=== PATIENT | female | born 1990 | race Caucasian/White ===

== ENCOUNTER 2019-09-12 21:04 | Emergency (ER) | payer OTHER, SELFPAY ==
[2019-09-12 21:12] VITALS: BP 113/65; PULSE 113; RESP 18; TEMP 37; O2SAT 100
--- NOTE | 2019-09-12 21:21 | ED.NAVMDI ---
HPI - Nausea/Vomiting/Diarrhea General Chief complaint: Nausea/Vomiting/Diarrhea Stated complaint: N/V, 12 WEEKS PREG Time Seen by Provider: 09/12/19 21:18 Source: patient and RN notes reviewed Mode of arrival: ambulatory Limitations: no limitations History of Present Illness HPI Narrative: Pt is a 29 y/o female who is currently 12 weeks and G1, who presents to the ED with c/o nausea and vomiting starting around 8 AM this morning. She notes that she has had intermittent nausea during her current , but states that she hasn't had any vomiting until today. Pt notes that she has had four episodes of emesis throughout the day today. She states that she received a colposcopy by her CLINICAL SERVICES ASSISTANT, Dr. Alvarez, this morning, and notes that she has had associated vaginal discharge ever since. Pt also reports recently having chills, sweats, body aches, and throat congestion. She notes that everyone in her house is currently sick with upper respiratory symptoms. Pt denies any diarrhea, dysuria, urinary frequency, ABD pain, or fever. MD elicited complaint: nausea and vomiting Onset (ago): hour(s) (13) Associated nausea: Yes Associated abdominal pain: No Associated symptoms: diaphoresis, fever/chills (chills) and other (body aches; throat congestion; vaginal discharge) Related Data Allergies Allergy/AdvReac Type Severity Reaction Status Date / Time tramadol Allergy Unknown Hives Verified 09/12/19 21:14 Review of Systems Review of Systems: All systems reviewed & are unremarkable except as noted in HPI and below Constitutional: Constitutional: Reports body ache(s), Reports chills and Denies fever(s) ENT: Reports other (throat congestion) Cardiovascular: Cardiovascular: Reports diaphoresis Gastrointestinal: Gastrointestinal: Denies abdominal pain, Denies diarrhea, Reports nausea and Reports vomiting Genitourinary: Genitourinary: Denies dysuria, Reports vaginal discharge and Denies other (urinary frequency) [facility] Past Medical History Medical History Inguinal hernia UTI (urinary tract infection) Surgical History Surgical History Hx of inguinal hernia repair Family History Family History (Updated 10/25/16 @ 14:33 by DOCTOR UNKNOWN) Grandparent Family history of thyroid disease Family history of cardiovascular disease Family history of lung cancer Family history of malignant neoplasm of breast in first degree relative Father Hypertension Malignant neoplasm of prostate Mother Hypertension Social History Social History Smoking status: Never smoker Alcohol intake: current Gender identity (if verbalized by the patient): Female Exam Narrative: Exam Narrative: GENERAL: Well-appearing, well-nourished, and in no acute distress. HEAD: Normocephalic, atraumatic. ENT: Mucous membranes moist. CHEST: Clear to auscultation. No respiratory distress. HEART: Tachycardic and regular. Normal peripheral pulses. ABDOMEN: Soft, nontender, nondistended. EXTREMITIES: Normal range of motion. No edema. NEURO: Alert and oriented x3. PSYCH: Normal mood and affect. Course Course Emergency Course: Patient informed of results. Tolerating oral intake. Hydrated. Discharge home. Vital Signs Vital signs: Vital Signs Temperature 98.6 F 09/12/19 21:12 Pulse Rate 113 H 09/12/19 21:12 Respiratory Rate 18 09/12/19 21:12 Blood Pressure 113/65 09/12/19 21:12 Pulse Oximetry 100 09/12/19 21:12 Temperature 98.6 F 09/12/19 21:12 Pulse Rate 92 09/12/19 22:57 Respiratory Rate 18 09/12/19 22:57 Blood Pressure 102/57 L 09/12/19 22:57 Pulse Oximetry 100 09/12/19 22:57 MDM - Nausea/Vomiting/Diarrhea Lab Data Result diagrams: 09/12/19 21:47 09/12/19 21:47 Labs: Lab Results 09/12/19 09/12/19 09/12/19 Range/Units 21:47 21
[2019-09-12 21:53] LABS: Basophils Percent Auto 0.2 % (0.2-1.2); Eosinophils Percent Auto 0.4 % (0-4.4); Hematocrit 41.4 % (37.0-47.0); Hemoglobin 13.8 g/dL (12.0-15.0); Immature Granulocyte Absolute 0.01 K/mm3 (0.00-0.031); Immature Granulocyte Percent A 0.2 % (0-0.5); Lymphocytes Absolute Auto 0.29 K/mm3 (0.9-3.2); Lymphocytes Percent Auto 5.5 % (18.3-44.2); Mean Corpuscular HGB Conc 33.3 g/dl (32-36); Mean Corpuscular Hemoglobin 30.7 pg (26-34); Mean Corpuscular Volume 92.2 fl (80-100); Monocytes Absolute Auto 0.2 K/mm3 (0.1-0.6); Monocytes Percent Auto 4.4 % (2.6-8.5); Neutrophils Absolute Auto 4.7 K/mm3 (1.3-6.7); Neutrophils Percent Auto 89.3 % (45.5-73.1); Platelet Count Result 227 k/mm3 (150-375); Red Blood Count 4.49 M/mm3 (4.2-5.4); Red Cell Distribution Width 12.8 % (11.5-14.5); White Blood Count 5.3 K/mm3 (4.5-10.0)
[2019-09-12] MEDS: PROMETHAZINE HCL 25 MG/ML AMPUL 12.5 MG IV PUSH (22:03)
[2019-09-12] MEDS: SODIUM CHLORIDE 0.9% IV 1,000 ML 999 ML IV CONT (22:04)
[2019-09-12 22:09] LABS: Blood Urea Nitrogen 11 mg/dL (7-17); Calcium 8.8 mg/dL (8.4-10.2); Carbon Dioxide 20 mmol/L (22-30); Chloride 100 mmol/L (98-107); Estimated CRCL calculation 161 ml/min; Estimated Glomerular Filt Rate > 60; Glucose 99 mg/dL (65-105); Potassium 3.7 mmol/L (3.4-5.0); Sodium 137 mmol/L (137-145)
[2019-09-12 22:14] VITALS: BP 116/82; PULSE 96; RESP 16; O2SAT 100
[2019-09-12 22:57] VITALS: BP 102/57; PULSE 92; RESP 18; O2SAT 100
[2019-09-12 22:58] LABS: Add Urine Microscopic? YES; Appearance Urine Clear (Clear); Bilirubin Urine Negative (Negative); Blood Urine Negative (Negative); Color Urine Yellow (Yellow); Glucose Urine UA Negative (Negative); Ketones Urine 2+ mg/dL (Negative); Leukocyte Esterase Ur Negative LEU/UL (Negative); Mucus Urine Few /lpf; Nitrate Urine Negative (Negative); Protein Urine Negative (Negative); RBC Urine 0-2 /hpf (0-2); Specific Grav Ur 1.028 (1.001-1.035); Squamous Epithelial Cell Urine Occasional /hpf (Few); Urobilinogen Urine Negative mg/dL (<2.0)
--- NOTE | 2019-09-12 23:10 | PC.NURSE ---
pt given crackers and water for po challenge from verbal order from ayanna piña.
--- NOTE | 2019-09-12 23:12 | PC.NURSE ---
pt states shes no longer nauseated. denies any abd pain. md notified.
--- NOTE | 2019-09-12 23:30 | PC.NURSE ---
pt denies any nausea after eating crackers/drinking water. md notified.
[2019-09-12 23:50] VITALS: BP 101/59; PULSE 91; RESP 18; TEMP 36.6; O2SAT 100
== END 2019-09-12 23:52 | disposition home or self-care (01) ==
PROVIDERS: Emergency Provider Emergency Medicine
DX: O21.9 Vomiting of pregnancy, unspecified (principal); Z87.440 Personal history of urinary (tract) infections; Z3A.12 12 weeks gestation of pregnancy
CPT/HCPCS: 36415; 80048; 81001; 85025; 96361; 96374; 99284; J2550; J7030

== ENCOUNTER 2019-09-30 20:38 | Emergency (ER) | payer OTHER, SELFPAY ==
[2019-09-30 21:10] VITALS: BP 123/67; PULSE 79; RESP 16; TEMP 36.9; O2SAT 100
[2019-09-30 21:20] VITALS: BP 125/80; BP 130/70; BP 135/84; PULSE 72; PULSE 75; PULSE 78
--- NOTE | 2019-09-30 21:26 | ED.FEMALEGU ---
HPI - Female Genitourinary General Chief complaint: Vaginal Bleeding Stated complaint: VB 14WKS PREG Time Seen by Provider: 09/30/19 21:25 Source: patient and RN notes reviewed Mode of arrival: wheelchair Limitations: no limitations History of Present Illness HPI Narrative: Pt is a 29 y/o female who is currently 14 weeks and G1, who presents to the ED with c/o vaginal bleeding starting around 20:30 this evening. She notes that she has been following with SETTER UP, Dr. Alvarez, for her current , and states that she received an US 1-2 weeks ago. Pt notes that she began passing bright red blood from her vagina earlier this evening. She also reports lower ABD pain as of this evening, but denies any fever, chills, or dysuria. Pt notes that she is currently being treated with Macrobid for a UTI. She states that she hasn't had any recent intercourse or traumatic falls. MD elicited complaint: vaginal bleeding Onset (ago): hour(s) (1) Location of symptoms: vaginal Vaginal bleeding: moderate Associated symptoms: abdominal pain (lower ABD pain) Treatment prior to arrival: other (Macrobid) Patient : Yes Related Data : 1 Allergies Allergy/AdvReac Type Severity Reaction Status Date / Time tramadol Allergy Unknown Hives Verified 09/12/19 21:14 Review of Systems Review of Systems: Narrative: CONSTITUTIONAL: Denies fever, chills, or sweats. GASTROINTESTINAL: Denies nausea, vomiting, or diarrhea. Reports lower ABD pain. GENITOURINARY: Denies dysuria or hematuria. Reports vaginal bleeding. All systems reviewed & are unremarkable except as noted in HPI and below PMFSH Family History Family History (Updated 10/25/16 @ 14:33 by DOCTOR UNKNOWN) Grandparent Family history of thyroid disease Family history of cardiovascular disease Family history of lung cancer Family history of malignant neoplasm of breast in first degree relative Father Hypertension Malignant neoplasm of prostate Mother Hypertension Social History Social History Smoking status: Never smoker Alcohol intake: current Gender identity (if verbalized by the patient): Female Exam Narrative: Exam Narrative: GENERAL: Well-appearing, well-nourished, and in no acute distress. HEAD: Normocephalic, atraumatic. EYES: PERRLA and EOMI. ENT: Nares clear, no rhinorrhea or epistaxis. Mucous membranes moist. NECK: Supple. CHEST: Clear to auscultation. No respiratory distress. HEART: Regular rate and rhythm. No murmur heard. Normal peripheral pulses. ABDOMEN: Soft, nondistended, normal active bowel sounds. Suprapubic tenderness. Fundus palpable below the umbilicus. No RLQ tenderness. EARLY CHILDHOOD COORDINATOR/: Labia majora and minora normal without lesions. Vagina with scant blood. No cervical motion tenderness. No adnexal tenderness or fullness bilaterally. Os is closed. No discharge present. EXTREMITIES: Normal range of motion. No edema. SKIN: Warm, dry, no rash. NEURO: No focal deficits. Alert and oriented. Course Course Emergency Course: Patient presented for evaluation of abdominal pain in setting of early second trimester . Pt with scant vaginal bleeding on exam. Os is closed. No sign of mucoid discharge or cervicitis. Patient with movement on bedside ultrasound, heart tones captured at 158. No heavy vaginal bleeding. No UTI. Blood counts are normal. Patient does not require RhoGam. Patient given advised on pelvic rest, advised follow-up with Dr. Alvarez this week. Advised to return should she experience very heavy vaginal bleeding that does not resolve, patient was given parameters for this as well. Patient then discharged home in stable condition. Vital Signs Vital signs: Vital Signs Temperature 36.9 C 09/30/19 21:10 Pulse Rate 79 09/30/19 21:10 Respiratory Rate 16 09/30/19 21:10 Blood Pressure 123/67 09/30/19 21:10 Pulse Oximetry 100 09/30/19 21:10 Temperature 36.9 C
[2019-09-30 21:52] LABS: Basophils Percent Auto 0.4 % (0.2-1.2); Eosinophils Absolute Auto 0.1 K/mm3 (0-0.3); Eosinophils Percent Auto 1.8 % (0-4.4); Hematocrit 38.9 % (37.0-47.0); Hemoglobin 12.8 g/dL (12.0-15.0); Immature Granulocyte Absolute 0.03 K/mm3 (0.00-0.031); Immature Granulocyte Percent A 0.4 % (0-0.5); Lymphocytes Absolute Auto 2.04 K/mm3 (0.9-3.2); Lymphocytes Percent Auto 28.2 % (18.3-44.2); Mean Corpuscular HGB Conc 32.9 g/dl (32-36); Mean Corpuscular Hemoglobin 30.7 pg (26-34); Mean Corpuscular Volume 93.3 fl (80-100); Monocytes Absolute Auto 0.5 K/mm3 (0.1-0.6); Monocytes Percent Auto 6.4 % (2.6-8.5); Neutrophils Absolute Auto 4.6 K/mm3 (1.3-6.7); Neutrophils Percent Auto 62.8 % (45.5-73.1); Platelet Count Result 270 k/mm3 (150-375); Red Blood Count 4.17 M/mm3 (4.2-5.4); Red Cell Distribution Width 13.1 % (11.5-14.5); White Blood Count 7.2 K/mm3 (4.5-10.0)
[2019-09-30 21:56] LABS: Add Urine Microscopic? YES; Appearance Urine Clear (Clear); Bilirubin Urine Negative (Negative); Blood Urine 2+ (Negative); Color Urine Yellow (Yellow); Glucose Urine UA Negative (Negative); Ketones Urine Trace mg/dL (Negative); Leukocyte Esterase Ur Negative LEU/UL (Negative); Mucus Urine Rare /lpf; Nitrate Urine Negative (Negative); Protein Urine Negative (Negative); RBC Urine 0-2 /hpf (0-2); Squamous Epithelial Cell Urine Moderate /hpf (Few); WBC Urine 0-3 /hpf
[2019-09-30 22:06] LABS: Alanine Aminotransferase 15 U/L (4-35); Albumin Level 4.7 g/dL (3.5-5.1); Alkaline Phosphatase 58 U/L (38-126); Aspartate Amino Transferase 21 U/L (14-36); Bilirubin,Total 0.9 mg/dL (0.2-1.3); Blood Urea Nitrogen 12 mg/dL (7-17); Calcium 9.1 mg/dL (8.4-10.2); Carbon Dioxide 23 mmol/L (22-30); Chloride 99 mmol/L (98-107); Estimated CRCL calculation 140 ml/min; Estimated Glomerular Filt Rate > 60; Glucose 82 mg/dL (65-105); Potassium 3.6 mmol/L (3.4-5.0); Sodium 139 mmol/L (137-145)
[2019-09-30 22:16] VITALS: BP 119/70; PULSE 73; RESP 18; O2SAT 100
[2019-09-30 23:55] VITALS: BP 129/81; PULSE 78; RESP 18; TEMP 36.4; O2SAT 100
== END 2019-09-30 23:56 | disposition home or self-care (01) ==
PROVIDERS: Emergency Provider Emergency Medicine
DX: O20.0 Threatened abortion (principal); Z3A.14 14 weeks gestation of pregnancy
CPT/HCPCS: 36415; 80053; 81001; 84702; 85025; 86900; 86901; 87070; 87491; 87591; 87808; 99284

== ENCOUNTER 2021-02-04 13:44 | Emergency (ER) | payer OTHER, SELFPAY ==
[2021-02-04 13:52] VITALS: BP 110/64; PULSE 93; RESP 12; TEMP 36.5; O2SAT 99
--- NOTE | 2021-02-04 14:03 | ED.URI ---
HPI - URI/Sore Throat General Chief Complaint: Upper Respiratory Infection Stated Complaint: sinus issues Time Seen by Provider: 02/04/21 14:03 Source: patient Mode of arrival: ambulatory Limitations: no limitations History of Present Illness HPI Narrative: Larisa Hansen is a 30 yo female with no PMH [facility] days of sinus pain and green mucus discharge, sinus tenderness, no fever, no sore throat is breast-feeding; has only nasal rinse Related Data Allergies Allergy/AdvReac Type Severity Reaction Status Date / Time tramadol Allergy Unknown Hives Verified 02/04/21 13:53 Review of Systems Review of Systems: Narrative: CONSTITUTIONAL: Denies fever, chills, sweats. EYES: Denies visual changes, redness, discharge. ENT: Denies rhinorrhea, has congestion, has sinus pain no sore throat, otalgia. CARDIOVASCULAR: Denies chest pain, palpitations, edema. RESPIRATORY: Denies dyspnea, wheezing, cough GASTROINTESTINAL: Denies abdominal pain, nausea, vomiting, diarrhea. GENITOURINARY: Denies dysuria, hematuria, abnormal discharge SKIN: Denies rash or itching. NEUROLOGIC: Denies numbness, or focal weakness. PSYCHIATRIC: Denies anxiety or depression. PMFSH Past Medical History Medical History (Updated 02/04/21 @ 14:16 by Valentina Lopez CNP) Inguinal hernia UTI (urinary tract infection) Surgical History Surgical History Hx of inguinal hernia repair Family History Family History Grandparent Family history of thyroid disease Family history of cardiovascular disease Family history of lung cancer Family history of malignant neoplasm of breast in first degree relative Father Hypertension Malignant neoplasm of prostate Mother Hypertension Social History Social History Smoking status: Never smoker Alcohol intake: current Gender identity (if verbalized by the patient): Female Comments At time of signature, I agree with nursing past medical, surgical, social and family history. There is no relevant family history pertinent to the presenting complaint. Exam Narrative: Exam Narrative: GENERAL: This is a well-nourished, well-developed patient, in mild distress. HEAD: normocephalic, atraumatic. Has frontal sinus pain EYES: Sclera clear/white. Vision is grossly intact. EARS: External ears normal, auditory canals clear and without drainage, TMs normal without perforation. Hearing grossly intact. NOSE: External nose normal without nasal discharge, nares with redness, no rhinorrhea. THROAT: Mucous membranes moist, posterior pharynx pink NECK: Neck supple, non-tender CARDIOVASCULAR: Regular rate and rhythm without murmurs, gallops, or rubs. RESPIRATORY: Clear to auscultation. Breath sounds equal bilaterally. No wheezes, rales, or rhonchi. GASTROINTESTINAL: Abdomen soft, non-tender, SKIN: warm, intact with no suspicious lesions or rash, good texture and turgor. NEURO: awake, alert, and oriented to person, place and time. There were no obvious focal neurologic abnormalities. Steady gait EXTREMITIES: Normal range of motion. BACK: Nontender without deformity Course Course Emergency Course: Patient comes with symptoms of sinus congestion x4 days Started on prednisone, Sudafed- switch to flonase after 5 days Vital Signs Vital signs: Vital Signs Temperature 97.7 F 02/04/21 13:52 Pulse Rate 93 02/04/21 13:52 Respiratory Rate 12 02/04/21 13:52 Blood Pressure 110/64 02/04/21 13:52 Pulse Oximetry 99 02/04/21 13:52 Temperature 97.7 F 02/04/21 13:52 Pulse Rate 93 02/04/21 13:52 Respiratory Rate 12 02/04/21 13:52 Blood Pressure 110/64 02/04/21 13:52 Pulse Oximetry 99 02/04/21 13:52 MDM - URI/Sore Throat Differential Diagnosis Differential diagnosis: Likely upper respiratory infection, sinusit
== END 2021-02-04 14:30 | disposition home or self-care (01) ==
PROVIDERS: Emergency Provider Nurse Practitioner
DX: J01.10 Acute frontal sinusitis, unspecified (principal)
CPT/HCPCS: 99213; G0463

== ENCOUNTER 2021-06-22 16:09 | Outpatient (CLI) | payer OTHER, SELFPAY ==
--- NOTE | ~2021-06-22 | US_ITS ---
EXAMINATION: US OB /maternal detail EXAM DATE: 06/22/2021 17:09 INDICATION: Screening. 2nd trimester. TECHNIQUE: Pelvic obstetrical transabdominal sonogram was performed by a technologist. There are mu ltiple grayscale and Doppler images available for interpretation. There are no earlier studies of th is gestation for comparison. FINDINGS: There is a single fetus identified in breech presentation with a heart rate of 144 beats pe r minute. The placenta is located in the posterior position. There is no sonographic evidence of ret roplacental hemorrhage identified. There is subjectively expected amount of amniotic fluid. Cervica l canal length is 4.4 cm without funneling. BIOMETRIC DATA: Biparietal diameter (BPD): 4.8 cm ----------------> 20 weeks 3 days. Head circumference (HC): 19.2 cm ----------------> 21 weeks 3 days. Abdominal circumference (AC): 17.0 cm ----------> 22 weeks 0 days. Femur length (FL): 3.7 cm --------------------------> 21 weeks 6 days. These measurements are concordant. HC/AC ratio is 1.13 (The 5th -- 95th percentile range is 1.06-1.24. Estimated weight is 455 g +/- 68 g. This is the 67th percentile when the currently reported cl inical gestation age 20 weeks 3 days, clinical estimated date of delivery (KIRILL-OPE) 10/30/2021 is used . estimated gestational age based on measurements from this exam is also 21 weeks 3 days, with an estimated date of delivery (KIRILL-AUA) 10/30. ANATOMIC SURVEY: The following anatomy is identified and is sonographically normal in appearance: Cerebral ventricles Cerebellum Cavum septum pellucidum. Cisterna magna Nuchal fold CTL-spine Four-chamber heart Cardiac outflow tracts Diaphragm Stomach Kidneys Bladder Three-vessel cord Cord insertion Nose/lips IMPRESSION: 1. Single fetus in breech presentation with heart rate 144 beats per minute. 2. Estimated weight of 455 grams, 68th percentile using the currently reported clinical gestat ion age of 21 weeks 3 days, KIRILL(OPE) 10/30. 3. Normal anatomic survey. Reviewed, dictated and finalized at location B. [employer] MAINTENANCE IMPRESSION: 1. Single fetus in breech presentation with heart rate 144 beats per minute. 2. Estimated weight of 455 grams, 68th percentile using the currently re ported clinical gestation age of 21 weeks 3 days, KIRILL(OPE) 10/30. 3. Normal anatomic survey.
== END 2021-06-22 16:10 | disposition home or self-care (01) ==
LOC: ANHIMG 16:10
PROVIDERS: Visit Provider Obstetrics & Gynecology
DX: Z36.9 Encounter for antenatal screening, unspecified (principal); Z3A.20 20 weeks gestation of pregnancy
CPT/HCPCS: 76805

== ENCOUNTER 2022-04-21 08:26 | Emergency (ER) | payer OTHER, SELFPAY ==
[2022-04-21 08:34] VITALS: BP 114/72; PULSE 103; RESP 16; TEMP 37.1; O2SAT 100
--- NOTE | 2022-04-21 08:45 | ED.URI ---
HPI - URI/Sore Throat General Chief Complaint: Upper Respiratory Infection Stated Complaint: sore throat, swollen lymph nodes Time Seen by Provider: 04/21/22 08:45 History of Present Illness HPI Narrative: 31-year-old female presented for complaint of sore throat since yesterday with a swollen lymph node in the right side of the neck. Rates pain 8/10. Not taking anything for symptoms. Denies difficulty swallowing secretions, nausea, vomiting, wheezing, fever or chills. She has 4 children who have been ill but no diagnoses. Related Data Allergies Allergy/AdvReac Type Severity Reaction Status Date / Time tramadol Allergy Unknown Hives Verified 04/21/22 08:32 Review of Systems Review of Systems: CONSTITUTIONAL: Denies body aches, fever, chills, or sweats. EYES: Denies visual changes, redness, or discharge. ENT: Denies rhinorrhea, congestion, or otalgia. CARDIOVASCULAR: Denies chest pain, palpitations, or edema. RESPIRATORY: Denies dyspnea. GASTROINTESTINAL: Denies abdominal pain, nausea, vomiting, or diarrhea. SKIN: Denies rash, itching, or wounds. MUSCULOSKELETAL: Denies back pain, joint pain, or myalgia. NEUROLOGIC: Denies headache PMFSH Past Medical History Medical History (Updated 04/21/22 @ 09:02 by Mariana Siddiqui APRN) Inguinal hernia UTI (urinary tract infection) Surgical History Surgical History Hx of inguinal hernia repair Family History Family History Grandparent Family history of thyroid disease Family history of cardiovascular disease Family history of lung cancer Family history of malignant neoplasm of breast in first degree relative Father Hypertension Malignant neoplasm of prostate Mother Hypertension Social History Social History Smoking status: Never smoker Alcohol intake: current Gender identity (if verbalized by the patient): Female Exam Narrative: GENERAL: well-appearing EYES: conjunctivae clear ENT: Mucous membranes moist. TMs pearly farr with normal light reflex bilaterally; no tragal tenderness. Oropharynx erythematous without lesions or exudate. No drooling, no hoarseness, no trismus, uvula midline. No tripod positioning, hot potato voice, or soft palate swelling. NECK: Supple. Right anterior cervical lymphadenopathy CHEST: Clear to auscultation, breath sounds equal. HEART: Regular rate and rhythm. SKIN: Warm, dry, no rash. NEURO: Alert and oriented x3. Course Course Emergency Course: Patient is aware of diagnosis, understands and agrees to treatment plan. Anticipatory guidance given. Patient agrees to follow-up as directed and is aware of reasons to seek care at the emergency department. Portions of this record may have been created with voice recognition software Level of Care: Express Care Visit Vital Signs Vital signs: Vital Signs Temperature 98.7 F 04/21/22 08:34 Pulse Rate 103 H 04/21/22 08:34 Respiratory Rate 16 04/21/22 08:34 Blood Pressure 114/72 04/21/22 08:34 Pulse Oximetry 100 04/21/22 08:34 Oxygen Delivery Room Air 04/21/22 08:34 Temperature 98.7 F 04/21/22 08:34 Pulse Rate 103 H 04/21/22 08:34 Respiratory Rate 16 04/21/22 08:34 Blood Pressure 114/72 04/21/22 08:34 Pulse Oximetry 100 04/21/22 08:34 Oxygen Delivery Room Air 04/21/22 08:34 MDM - URI/Sore Throat MDM Narrative Medical decision making narrative: strep result reviewed with pt. Advise supportive treatments. Patient is appropriate for outpatient treatment and follow-up. Differential Diagnosis Differential diagnosis: Likely upper respiratory infection, viral infection and pharyngitis Discharge Plan Discharge Clinical Impression: Viral infection, Lymphadenitis Patient Disposition: Home, Self-Care Condition: Stable Instructions: Antibiotic For
== END 2022-04-21 09:05 | disposition home or self-care (01) ==
PROVIDERS: Emergency Provider Nurse Practitioner Family
DX: I88.9 Nonspecific lymphadenitis, unspecified (principal); B34.9 Viral infection, unspecified
CPT/HCPCS: 87081; 87880; 99213; G0463

== ENCOUNTER 2023-07-05 16:11 | Observation (INO) | payer OTHER, SELFPAY ==
--- NOTE | ~2023-07-05 | US_ITS ---
EXAMINATION: US abdomen limited DATE: 07/06/2023 09:18 INDICATION: Hyperbilirubinemia. TECHNIQUE: Multiple grayscale and Doppler ultrasound images of the abdomen were obtained. COMPARISON: CT abdomen and pelvis 07/05/2023 FINDINGS: The visualized portions of the head, body, and tail of the pancreas are normal. The liver i s normal without focal lesion. There is antegrade flow in main portal vein. The gallbladder is normal in size. No gallstones or gallbladder wall thickening. There was no sonographic Hoskins sign. The com mon duct is normal and measures 5 mm. IMPRESSION: 1. Normal right upper quadrant ultrasound. Reviewed, dictated and finalized at location A. FORMING MACHINE OPERATOR
--- NOTE | ~2023-07-05 | CT_ITS ---
EXAMINATION: CT abdomen pelvis wo con DATE: 07/05/2023 20:13 INDICATION: concern for L pyelo vs stone TECHNIQUE: Computed tomography (CT) of the abdomen and pelvis was performed without intravenous contr ast. Automated exposure control and iterative reconstruction technique were employed. The dose-length product was 1146.48 mGy-cm. COMPARISON: 03/20/2014. FINDINGS: Lower thorax: Unremarkable Liver: Normal. Biliary/Gallbladder: Gallbladder is normal. No bile duct dilation. Pancreas: No mass or duct dilation. Spleen: Normal. Adrenals:No mass. Kidneys: 2 mm nonobstructing right upper pole calculus. Bilateral hyperdense renal pyramids as can be seen with medullary nephrocalcinosis. GI tract: No small or large bowel dilation. Normal appendix. Mesentery/Peritoneum: No ascites, mass, or free air. Retroperitoneum: No mass. Pelvis: Pelvic organs are within normal limits. Soft Tissues: Soft tissues and body wall unremarkable. Bones: No acute osseous finding. IMPRESSION: No acute abdominal pelvic process detected. Specifically, no evidence of obstructive uropathy Reviewed, dictated and finalized at location K. L APPLIANCE ASSEMBLY SUPERVISOR IMPRESSION: No acute abdominal pelvic process detected. Specifically, no evidence of obstru ctive uropathy
--- NOTE | ~2023-07-05 | XR_ITS ---
Portable chest x-ray Comparison: None Clinical History: Fever Findings: Lungs are clear, without focal consolidation or pleural effusion. Cardiomediastinal silho uette is unremarkable. Bones and soft tissues are unremarkable. Impression: Normal chest. Reviewed, dictated and finalized at location . [employer] Impression: Normal chest.
[2023-07-05 16:20] VITALS: BP 113/68; PULSE 112; RESP 17; TEMP 37.1; O2SAT 98
[2023-07-05 16:40] LABS: Appearance Urine Turbid (Clear); Bacteria Urine 4+ /hpf; Bilirubin Urine Negative (Negative); Blood Urine 2+ (Negative); Color Urine Yellow (Yellow); Glucose Urine UA Negative (Negative); Ketones Urine Trace mg/dL (Negative); Leukocyte Esterase Ur 3+ LEU/UL (Negative); Nitrate Urine Positive (Negative); Non Pathogenic Casts 0-2; Protein Urine 2+ mg/dL (Negative); Squamous Epithelial Cell Urine Few /hpf (Few); WBC Urine >100 /hpf; pH Urine 6.5 (5.0-9.0)
[2023-07-05 16:53] LABS: Add Urine Microscopic? YES
--- NOTE | 2023-07-05 20:07 | ED.FEMALEGU ---
HPI - Female Genitourinary General Chief complaint: Urogenital-Female Stated complaint: kidney infection Time Seen by Provider: 07/05/23 18:44 History of Present Illness HPI Narrative: 33 y/o F With reported history of pyelonephritis reports for evaluation for left flank pain since yesterday. Patient states she feels fatigued and developed flank pain yesterday is concerned that she has another kidney infection. She reports associated nausea, no vomiting or diarrhea. LMP 1 week ago. She denies dysuria, hematuria, urinary frequency urgency, diarrhea, vomiting, fever, cough or congestion. States she took Tylenol earlier today without improvement. denies history of kidney stones. Related Data Home Medications Medication Instructions Recorded Confirmed sertraline 25 mg tablet 25 mg PO DAILY 07/06/23 07/06/23 Allergies Allergy/AdvReac Type Severity Reaction Status Date / Time tramadol Allergy Unknown Hives Verified 07/05/23 18:45 Review of Systems Review of Systems: CONSTITUTIONAL: Denies fever, chills, or sweats. EYES: Denies visual changes, redness, or discharge. ENT: Denies rhinorrhea, congestion, sore throat, or otalgia. CARDIOVASCULAR: Denies chest pain, palpitations, or edema. RESPIRATORY: Denies cough or dyspnea. GASTROINTESTINAL: See HPI GENITOURINARY: see HPI SKIN: Denies rash or itching. MUSCULOSKELETAL: Denies back pain, joint pain, or myalgia. NEUROLOGIC: Denies headache, numbness, or weakness. PSYCHIATRIC: Denies anxiety or depression. [facility] Past Medical History Medical History (Updated 07/06/23 @ 00:04 by Faviola Lemus PA-C) Inguinal hernia UTI (urinary tract infection) Surgical History Surgical History Hx of inguinal hernia repair Family History Family History Grandparent Family history of thyroid disease Family history of cardiovascular disease Family history of lung cancer Family history of malignant neoplasm of breast in first degree relative Father Hypertension Malignant neoplasm of prostate Mother Hypertension Social History Social History Smoking status: Never smoker Alcohol intake: never Substance use: never Lack of Transportation: No Lack of Food: Never True Current Housing: I Have Housing Concerned About Future Housing: No Difficulty Paying Gas/Electric Bills: No Difficulty Paying for Meds: No Currently Unemployed: No Education: Associate Degree Difficulty w/ Childcare or Family Care: No Gender identity (if verbalized by the patient): Female Spiritual care concerns: No Exam Narrative: GENERAL: Well-appearing, well-nourished, and in no acute distress. HEAD: Normocephalic, atraumatic. EYES: PERRLA and EOMI. ENT: Nares clear, no rhinorrhea or epistaxis. Mucous membranes moist. NECK: Supple. CHEST: Clear to auscultation. No respiratory distress. HEART: Regular rate and rhythm. No murmur heard. Normal peripheral pulses. ABDOMEN: Soft, nontender, nondistended, normal active bowel sounds. Left CVA tenderness. No overlying skin changes. No abdominal rebound, guarding, or rigidity, EXTREMITIES: Normal range of motion. No edema. SKIN: Warm, dry, no rash. NEURO: No focal deficits. Alert and oriented x3 Course Vital Signs Vital signs: Vital Signs Temperature 98.7 F 07/05/23 16:20 Pulse Rate 112 H 07/05/23 16:20 Respiratory Rate 17 07/05/23 16:20 Blood Pressure 113/68 07/05/23 16:20 Pulse Oximetry 98 07/05/23 16:20 Oxygen Delivery Room Air 07/05/23 16:20 Temperature 99.6 F 07/06/23 01:28 Pulse Rate 120 H 07/06/23 01:28 Respiratory Rate 18 07/06/23 01:28 Blood Pressure 131/53 L 07/06/23 01:28 Pulse Oximetry 96 07/06/23 01:28 Oxygen Delivery Room Air 07/05/23 16:20 MDM - Female Genitourinary MDM [place]
[2023-07-05] MEDS: SODIUM CHLORIDE 0.9% IV 1,000 ML 999 ML IV CONT ×3 (20:38→23:37)
[2023-07-05 20:44] LABS: Basophils Percent Auto 0.3 % (0.2-1.2); Hematocrit 42.1 % (37.0-47.0); Hemoglobin 13.1 g/dL (12.0-15.0); Immature Granulocyte Absolute 0.03 K/mm3 (0.00-0.031); Immature Granulocyte Percent A 0.3 % (0-0.5); Lymphocytes Absolute Auto 0.64 K/mm3 (0.9-3.2); Lymphocytes Percent Auto 6.4 % (18.3-44.2); Mean Corpuscular HGB Conc 31.1 g/dl (32-36); Mean Platelet Volume 9.8 fl (7.4-10.4); Monocytes Absolute Auto 0.8 K/mm3 (0.1-0.6); Monocytes Percent Auto 7.7 % (2.6-8.5); Neutrophils Absolute Auto 8.5 K/mm3 (1.3-6.7); Neutrophils Percent Auto 85.3 % (45.5-73.1); Platelet Count Result 235 k/mm3 (150-375); Red Blood Count 4.68 M/mm3 (4.2-5.4); Red Cell Distribution Width 13.8 % (11.5-14.5)
[2023-07-05] MEDS: MORPHINE SULFATE (*CRX) 2 MG/ML INJ IV PUSH (20:50)
[2023-07-05] MEDS: ONDANSETRON INJ 4 MG/2 ML VIAL IV PUSH (20:51)
[2023-07-05 20:59] LABS: Alanine Aminotransferase 29 U/L (6-35); Albumin Level 5.1 g/dL (3.5-5.1); Alkaline Phosphatase 79 U/L (38-126); Anion Gap 14 mmol/L (8-16); Aspartate Amino Transferase 29 U/L (14-36); Bilirubin,Total 2.3 mg/dL (0.2-1.3); Blood Urea Nitrogen 11 mg/dL (7-17); Calcium 9.2 mg/dL (8.4-10.2); Carbon Dioxide 23 mmol/L (22-30); Chloride 100 mmol/L (98-107); Estimated CRCL calculation 108 ml/min; Estimated Glomerular Filt Rate > 60; Glucose 131 mg/dL (65-110); Lipase 49 U/L (23-300); Potassium 3.9 mmol/L (3.4-5.0); Sodium 137 mmol/L (137-145)
[2023-07-05 22:03] VITALS: BP 139/81; PULSE 116; O2SAT 100
[2023-07-05] MEDS: KETOROLAC 15 MG/ML VIAL (*BKC) IV PUSH (22:10)
[2023-07-05 23:03] VITALS: BP 133/74; PULSE 118; RESP 16; O2SAT 100
--- NOTE | 2023-07-05 23:09 | ECG_ITS ---
Measurements Intervals [place] Rate: 117 P: 61 MN: 137 QRS: 58 QRSD: 89 T: 56 QT: 303 QTc: 424 Interpretive Statements SINUS TACHYCARDIA NONSPECIFIC ST-T WAVE ABNORMALITY- ANT/INF LEADS ABNORMAL ECG NO PREVIOUS ECG AVAILABLE FOR COMPARISON Electronically Signed On 07-06-2023 6:30:56 ECONOMIC RESEARCH ASSISTANT by David Hardin D.O.
[2023-07-05 23:36] VITALS: BP 132/74; PULSE 118; RESP 16; TEMP 37.5; O2SAT 100
[2023-07-05 23:54] VITALS: BP 129/65; PULSE 122; RESP 16; TEMP 38.2; O2SAT 100
[2023-07-06] VITALS (16 sets, daily range): BP systolic 100–154; BP diastolic 51–79; PULSE 93–128; RESP 16–18; TEMP 36.9–39.5; O2SAT 96–100; BMI 36.3
[2023-07-06] MEDS: ACETAMINOPHEN 500 MG TABLET 1000 MG PO (00:01)
[2023-07-06] MEDS: ONDANSETRON INJ 4 MG/2 ML VIAL IV PUSH ×2 (00:38→05:44)
[2023-07-06] MEDS: SODIUM CHLORIDE 0.9% IV 1,000 ML 100 ML IV CONT ×3 (01:03→20:48)
[2023-07-06] MEDS: KETOROLAC 15 MG/ML VIAL (*BKC) IV PUSH (01:03)
[2023-07-06 01:16] LABS: Lactic Acid Reflex 1.1 mmol/L (0.7-2.0)
--- NOTE | 2023-07-06 01:30 | ADMGEN ---
This patient, Larisa Finnegan, was admitted to Medical Room 247-. Patient/family oriented to hospital policies and general routines including ID bracelet, bed and alarms, visiting hours, pain management, procedures, bathroom and other care routines, personal items, smoking policy, room service/diet, and visiting hours. Information on how to activate the Rapid Response Team has been discussed. Patient/Family are encouraged to report perceived risks to care and to ask questions if they do not understand what they are told or what they should do.
[2023-07-06 01:39] LABS: Influenza A QL RT-PCR Negative (Negative); Influenza B QL RT-PCR Negative (Negative); SARS-CoV-2 RNA PCR Negative (Negative)
--- NOTE | 2023-07-06 07:17 | PM.IMHP ---
H&P: HPI History of Present Illness Date/Time: 07/06/23 07:17 Chief Complaint: Left flank pain Narrative: This is a 33 year old female with significant past medical history of inguinal hernia and frequent UTI's that presented to the hospital with chief complaint of left flank pain with associated nausea that started on 07/04/23. Patient is concerned that she may have another UTI. Work up in the hospital included a chest x-ray which was negative for any acute cardiopulmonary disease. She also had a CT of the abdomen/pelvis which did not any acute abdominal pelvic process or uropathy obstruction. There was a 2mm non-obstructing stone in right upper pole. EKG showing sinus tachycardia, rate 117 Labs revealed a WBC 10.0, absolute neutrophils 8.5, Lactic acid 1.1, bilirubin 2.3, Liver enzymes were normal, BG 82-131, Lipase 49. UA revealed 2+ protein, trace ketones, 2+ blood, + Nitrates, 3+ leukocytes, 3-5 urine RBC's, >100 urine WBC's, few urine squamous epithelial cells, 4+ bacteria. Respiratory panel was negative. Patient was given 3L NS, blood and urine cultures were obtained, and she was started on Rocephin 1gm IV in the ER. Patient meeting sepsis criteria with T-max 103.1, tachycardia 120's, and known source of UTI. On examination today patient alert and oriented x4, lying in the bed. She reports headache averaging 6/10 on the pain scale and continued nausea. Vital signs are stable, she is on room air, she is currently afebrile. She endorses nausea and vomiting. She denies any fever, chills, diarrhea, abdominal pain. Labs today revealed WBC 10.9, Hgb 10.3, Hct 33.1, absolute neuts 9.3, Na+ 135, K+ 3.5, BUN 10, Creatinine 0.60, BG ranging 131-140, Lactic acid 0.7, Ca+ 7.6, total bili 1.5, liver enzymes normal. Blood and urine cultures pending. Patient was increased to 2gm Rocephin given her history of UTI's/ pyelonephritis and sepsis presentation. Review of Systems Review of Systems: All systems reviewed & are unremarkable except as noted in HPI and below Constitutional: Constitutional: Reports as per HPI and Reports no additional constitutional complaints Eyes: Eyes: Reports as per HPI and Reports no additional eye complaints ENT: Reports system reviewed and no additional complaints, except as documented and Reports as per HPI Cardiovascular: Cardiovascular: Reports as per HPI and Reports no additional cardiovascular complaints Respiratory: Respiratory: Reports as per HPI and Reports no additional respiratory complaints Gastrointestinal: Gastrointestinal: Reports as per HPI and Reports no additional gastrointestinal complaints Genitourinary: Genitourinary: Reports no additional female genitourinary complaints and Reports as per HPI Musculoskeletal: Musculoskeletal: Reports no additional musculoskeletal complaints and Reports as per HPI Integumentary/Breasts: Skin/Breast: Reports system reviewed and no additional complaints, except as docu and Reports as per HPI Neurologic: Reports system reviewed and no additional complaints, except as documented and Reports as per HPI Psychiatric: Psychiatric: Reports no additional psychiatric complaints and Reports as per HPI [facility] Past Medical History Medical History Inguinal hernia UTI (urinary tract infection) Surgical History Surgical History Hx of inguinal hernia repair Family History Family History Grandparent Family history of thyroid disease Family history of cardiovascular disease Family history of lung cancer Family history of malignant neoplasm of breast in first degree relative Father Hypertension Malignant neoplasm of prostate Mother Hypertension Social History Social History Smoking status: Never smoker Alcohol intake: never Substance use: n
[2023-07-06 08:04] LABS: Basophils Percent Auto 0.2 % (0.2-1.2); Hematocrit 33.1 % (37.0-47.0); Hemoglobin 10.3 g/dL (12.0-15.0); Immature Granulocyte Absolute 0.04 K/mm3 (0.00-0.031); Immature Granulocyte Percent A 0.4 % (0-0.5); Lymphocytes Absolute Auto 0.59 K/mm3 (0.9-3.2); Lymphocytes Percent Auto 5.4 % (18.3-44.2); Mean Corpuscular HGB Conc 31.1 g/dl (32-36); Mean Corpuscular Hemoglobin 27.7 pg (26-34); Mean Platelet Volume 10.2 fl (7.4-10.4); Monocytes Absolute Auto 0.9 K/mm3 (0.1-0.6); Monocytes Percent Auto 8.5 % (2.6-8.5); Neutrophils Absolute Auto 9.3 K/mm3 (1.3-6.7); Neutrophils Percent Auto 85.5 % (45.5-73.1); Platelet Count Result 177 k/mm3 (150-375); Red Blood Count 3.72 M/mm3 (4.2-5.4); Red Cell Distribution Width 13.8 % (11.5-14.5); White Blood Count 10.9 K/mm3 (4.5-10.0)
[2023-07-06 08:22] LABS: Lactic Acid Reflex 0.7 mmol/L (0.7-2.0)
[2023-07-06 08:23] LABS: Alanine Aminotransferase 20 U/L (6-35); Albumin Level 3.5 g/dL (3.5-5.1); Alkaline Phosphatase 61 U/L (38-126); Anion Gap 8 mmol/L (8-16); Aspartate Amino Transferase 21 U/L (14-36); Bilirubin,Total 1.5 mg/dL (0.2-1.3); Blood Urea Nitrogen 10 mg/dL (7-17); Calcium 7.6 mg/dL (8.4-10.2); Carbon Dioxide 22 mmol/L (22-30); Chloride 105 mmol/L (98-107); Estimated CRCL calculation 141 ml/min; Estimated Glomerular Filt Rate > 60; Glucose 140 mg/dL (65-110); Potassium 3.5 mmol/L (3.4-5.0); Sodium 135 mmol/L (137-145)
[2023-07-06] MEDS: ENOXAPARIN 40 MG/0.4 ML SYRINGE SUB-Q (09:02)
[2023-07-06] MEDS: cefTRIAXone 2 GM/NS 100 ML 2 GM/100 ML BAG IVPB (09:03)
[2023-07-06] MEDS: SERTRALINE HCL 25 MG TABLET PO (09:03)
--- NOTE | 2023-07-06 11:08 | PC.NURSE ---
On 07/06/23, the student, [Gala Cullen], provided care and completed [facility] documentation on this patient. I have reviewed the student's documentation and agree with the findings.
[2023-07-06] MEDS: PROCHLORPERAZINE EDISYLATE 10 MG/2 ML VIAL IV PUSH (11:22)
[2023-07-06] MEDS: ACETAMINOPHEN 325 MG TABLET 650 MG PO (15:55)
[2023-07-07] VITALS (9 sets, daily range): BP systolic 120–166; BP diastolic 66–73; PULSE 63–98; RESP 16–18; TEMP 37.1–37.6; O2SAT 95–98
[2023-07-07 06:00] LABS: Basophils Percent Auto 0.1 % (0.2-1.2); Hematocrit 31.4 % (37.0-47.0); Hemoglobin 9.8 g/dL (12.0-15.0); Immature Granulocyte Absolute 0.03 K/mm3 (0.00-0.031); Immature Granulocyte Percent A 0.3 % (0-0.5); Lymphocytes Absolute Auto 1.07 K/mm3 (0.9-3.2); Lymphocytes Percent Auto 12.3 % (18.3-44.2); Mean Corpuscular HGB Conc 31.2 g/dl (32-36); Mean Corpuscular Hemoglobin 27.8 pg (26-34); Mean Platelet Volume 10.4 fl (7.4-10.4); Monocytes Absolute Auto 0.9 K/mm3 (0.1-0.6); Monocytes Percent Auto 10.6 % (2.6-8.5); Neutrophils Absolute Auto 6.7 K/mm3 (1.3-6.7); Neutrophils Percent Auto 76.7 % (45.5-73.1); Platelet Count Result 175 k/mm3 (150-375); Red Blood Count 3.53 M/mm3 (4.2-5.4); Red Cell Distribution Width 13.7 % (11.5-14.5); White Blood Count 8.7 K/mm3 (4.5-10.0)
[2023-07-07 06:19] LABS: Alanine Aminotransferase 20 U/L (6-35); Albumin Level 3.4 g/dL (3.5-5.1); Alkaline Phosphatase 59 U/L (38-126); Anion Gap 8 mmol/L (8-16); Aspartate Amino Transferase 22 U/L (14-36); Blood Urea Nitrogen 8 mg/dL (7-17); Calcium 7.9 mg/dL (8.4-10.2); Carbon Dioxide 20 mmol/L (22-30); Chloride 107 mmol/L (98-107); Estimated CRCL calculation 166 ml/min; Estimated Glomerular Filt Rate > 60; Glucose 116 mg/dL (65-110); Potassium 3.5 mmol/L (3.4-5.0); Sodium 135 mmol/L (137-145)
--- NOTE | 2023-07-07 08:12 | PM.IMPN ---
Progress Note: A&P Assessment and Plan (1) Sepsis: Qualifiers: Sepsis acute organ dysfunction status: without acute organ dysfunction Sepsis type: sepsis due to unspecified organism Qualified Code(s): A41.9 - Sepsis, unspecified organism Code(s): A41.9 - Sepsis, unspecified organism Status: Acute Assessment and Plan: 07/05/23: Patient meeting sepsis criteria with temp 103.1, tachycardia 120's, and known UTI Patient received 3L NS and started on IVF @ 100ml/hr Blood and urine cultures were obtained and are pending Patient was started on Rocephin 1gm which we increased to 2gm today due to history of pyelonephritis and sepsis presentation 07/07/23: Blood cultures showing no growth Urine culture showing E. coli in the urine on preliminary, awaiting sensitivities and final read Continue with Rocephin 2 gm for now. Still having high temp reads with T-max of 102.5 last night (2) UTI (urinary tract infection): Code(s): N39.0 - Urinary tract infection, site not specified Status: Acute Assessment and Plan: 07/05/23: UA 2+ protein, trace ketones, 2+ blood, + Nitrates, 3+ leukocyte, 3-5 urine RBC's, >100 urine WBCs, few urine squamous epithelial cells, 4+ bacteria. Urine sent for culture and is pending Started on Rocephin 1gm, will increase to 2gm today considering her sepsis picture and history of UTI's Reporting nausea/vomiting over night, Zofran ordered q4h as needed, will give a one time dose of Compazine today 07/07/23: Urine culture showing E.coli on preliminary read, awaiting final read and sensitivities. Continue Rocephin (3) Pyelonephritis: Code(s): N12 - Tubulo-interstitial nephritis, not specified as acute or chronic Status: Acute Assessment and Plan: 07/05/23: see above CT of abdomen/pelvis negative for any uropathic obstructing stone elevated temp, tachycardia, left flank pain, UA showing UTI. 07/07/23: Denies left flank pain Still having high temp with T max 102.5 last night. Time Spent With Patient Time with patient: 25 - 35 minutes Subjective Date/time seen: 07/07/23 08:12 Interval history: 07/06/23: This is a 33 year old female with significant past medical history of inguinal hernia and frequent UTI's that presented to the hospital with chief complaint of left flank pain with associated nausea that started on 07/04/23. Patient is concerned that she may have another UTI. Work up in the hospital included a chest x-ray which was negative for any acute cardiopulmonary disease. She also had a CT of the abdomen/pelvis which did not any acute abdominal pelvic process or uropathy obstruction. There was a 2mm non-obstructing stone in right upper pole. EKG showing sinus tachycardia, rate 117 Labs revealed a WBC 10.0, absolute neutrophils 8.5, Lactic acid 1.1, bilirubin 2.3, Liver enzymes were normal, BG 82-131, Lipase 49. UA revealed 2+ protein, trace ketones, 2+ blood, + Nitrates, 3+ leukocytes, 3-5 urine RBC's, >100 urine WBC's, few urine squamous epithelial cells, 4+ bacteria. Respiratory panel was negative. Patient was given 3L NS, blood and urine cultures were obtained, and she was started on Rocephin 1gm IV in the ER. Patient meeting sepsis criteria with T-max 103.1, tachycardia 120's, and known source of UTI. On examination today patient alert and oriented x4, lying in the bed.? She reports headache averaging 6/10 on the pain scale and continued nausea.? Vital signs are stable, she is on room air, she is currently afebrile.? She endorses nausea and vomiting.? She denies any fever, chills, diarrhea, abdominal pain.? Labs today revealed WBC 10.9, Hgb 10.3, Hct 33.1, absolute neuts 9.3, Na+ 135, K+ 3.5, BUN 10, Creatinine 0.60, BG ranging 131-140, Lactic acid 0.7, Ca+ 7.6, total bili 1.5, liver enzymes normal. Blood and urine cultures pending. Patient was increased to 2gm Rocephin given her history of UTI's/ pyelonephritis and sepsis presentation. 07/07
[2023-07-07] MEDS: cefTRIAXone 2 GM/NS 100 ML 2 GM/100 ML BAG IVPB (08:22)
[2023-07-07] MEDS: SERTRALINE HCL 25 MG TABLET PO (08:22)
[2023-07-07] MEDS: SODIUM CHLORIDE 0.9% IV 1,000 ML 100 ML IV CONT ×2 (08:22→17:42)
[2023-07-07] MEDS: ENOXAPARIN 40 MG/0.4 ML SYRINGE SUB-Q (08:29)
--- NOTE | 2023-07-07 10:51 | PC.NURSE ---
On 07/07/23, the student, [Gala Cullen], provided care and completed [facility] documentation on this patient. I have reviewed the student's documentation and agree with the findings.
[2023-07-07] MEDS: ACETAMINOPHEN 325 MG TABLET 650 MG PO ×2 (13:48→20:13)
[2023-07-08] VITALS (8 sets, daily range): BP systolic 110–121; BP diastolic 59–63; PULSE 64–80; RESP 14–18; TEMP 36.4–37.1; O2SAT 97–99
[2023-07-08] MEDS: SODIUM CHLORIDE 0.9% IV 1,000 ML 100 ML IV CONT ×2 (03:38→12:57)
[2023-07-08 05:59] LABS: Basophils Percent Auto 0.4 % (0.2-1.2); Eosinophils Absolute Auto 0.1 K/mm3 (0-0.3); Eosinophils Percent Auto 0.9 % (0-4.4); Hematocrit 32.1 % (37.0-47.0); Hemoglobin 9.8 g/dL (12.0-15.0); Immature Granulocyte Absolute 0.01 K/mm3 (0.00-0.031); Immature Granulocyte Percent A 0.2 % (0-0.5); Lymphocytes Absolute Auto 1.48 K/mm3 (0.9-3.2); Mean Corpuscular HGB Conc 30.5 g/dl (32-36); Mean Corpuscular Hemoglobin 27.2 pg (26-34); Mean Corpuscular Volume 89.2 fl (80-100); Mean Platelet Volume 10.6 fl (7.4-10.4); Monocytes Absolute Auto 0.6 K/mm3 (0.1-0.6); Neutrophils Absolute Auto 3.2 K/mm3 (1.3-6.7); Neutrophils Percent Auto 59.5 % (45.5-73.1); Platelet Count Result 178 k/mm3 (150-375); Red Cell Distribution Width 13.7 % (11.5-14.5); White Blood Count 5.3 K/mm3 (4.5-10.0)
[2023-07-08 06:11] LABS: Alanine Aminotransferase 18 U/L (6-35); Albumin Level 3.4 g/dL (3.5-5.1); Alkaline Phosphatase 62 U/L (38-126); Anion Gap 9 mmol/L (8-16); Aspartate Amino Transferase 22 U/L (14-36); Bilirubin,Total 0.8 mg/dL (0.2-1.3); Blood Urea Nitrogen 8 mg/dL (7-17); Carbon Dioxide 23 mmol/L (22-30); Chloride 108 mmol/L (98-107); Estimated CRCL calculation 166 ml/min; Estimated Glomerular Filt Rate > 60; Glucose 99 mg/dL (65-110); Potassium 3.5 mmol/L (3.4-5.0); Sodium 140 mmol/L (137-145)
[2023-07-08] MEDS: SERTRALINE HCL 25 MG TABLET PO (09:09)
[2023-07-08] MEDS: ACETAMINOPHEN 325 MG TABLET 650 MG PO (09:09)
[2023-07-08] MEDS: ENOXAPARIN 40 MG/0.4 ML SYRINGE SUB-Q (09:10)
[2023-07-08] MEDS: cefTRIAXone 2 GM/NS 100 ML 2 GM/100 ML BAG IVPB (09:11)
--- NOTE | 2023-07-08 09:35 | P.PNIM_ITS ---
Progress Note: A&P Assessment and Plan (1) Sepsis: Qualifiers: Sepsis acute organ dysfunction status: without acute organ dysfunction Sepsis type: sepsis due to unspecified organism Qualified Code(s): A41.9 - S epsis, unspecified organism Code(s): A41.9 - Sepsis, unspecified organism Status: Acute Assessment and Plan: 07/05/23: * Patient meeting sepsis criteria with temp 103.1, tachycardia 120's, and known UTI * Patient received 3L NS and started on IVF @ 100ml/hr * Blood and urine cultures were obtained and are pending * Patient was started on Rocephin 1gm which we increased to 2gm today due to history of pyelonephritis and sepsis presentation 07/07/23: * Blood cultures showing no growth * Urine culture showing E. coli in the urine on preliminary, awaiting sensitivities and final read * Continue with Rocephin 2 gm for now. * Still having high temp reads with T-max of 102.5 last night 07/08/23: * (2) UTI (urinary tract infection): Code(s): N39.0 - Urinary tract infection, site not specified Status: Acute Assessment and Plan: 07/05/23: * UA 2+ protein, trace ketones, 2+ blood, + Nitrates, 3+ leukocyte, 3-5 urine RBC's, >100 urine WBCs, few urine squamous epithelial cells, 4+ bacteria. * Urine sent for culture and is pending * Started on Rocephin 1gm, will increase to 2gm today considering her sepsis picture and history of UTI's * Reporting nausea/vomiting over night, Zofran ordered q4h as needed, will give a one time dose of Compazine today 07/07/23: * Urine culture showing E.coli on preliminary read, awaiting final read and sensitivities. * Continue Rocephin 07/08/23: * (3) Pyelonephritis: Code(s): N12 - Tubulo-interstitial nephritis, not specified as acute or chronic Status: Acute Assessment and Plan: 07/05/23: * see above * CT of abdomen/pelvis negative for any uropathic obstructing stone * elevated temp, tachycardia, left flank pain, UA showing UTI. 07/07/23: * Denies left flank pain * Still having high temp with T max 102.5 last night. 12/2/23: * Time Spent With Patient Time with patient: 25 - 35 minutes Subjective Date/time seen: 07/08/23 09:35 Interval history: 07/06/23: This is a 33 year old female with significant past medical history of inguinal hernia and frequent UTI's that presented to the hospital with chief complaint of left flank pain with associated nausea that started on 07/04/23. Patient is concerned that she may have another UTI. Work up in the hospital included a chest x-ray which was negative for any acute cardiopulmonary disease. She also had a CT of the abdomen/pelvis which did not any acute abdominal pelvic process or uropathy obstruction. There was a 2mm non-obstructing stone in right upper pole. EKG showing sinus tachycardia, rate 117 Labs revealed a WBC 10.0, absolute neutrophils 8.5, Lactic acid 1.1, bilirubin 2.3, Liver enzymes were normal, BG 82-131, Lipase 49. UA revealed 2+ protein, trace ketones, 2+ blood, + Nitrates, 3+ leukocytes, 3-5 urine RBC's, >100 urine WBC's, few urine squamous epithelial cells, 4+ bacteria. Respiratory panel was negative. Patient was given 3L NS, blood and urine cultures were obtained, and she was started on Rocephin 1gm IV in the ER. Patient meeting sepsis criteria with T-max 103.1, tachycardia 120's, and known source of UTI. On examination today patient alert and oriented x4, lying in the bed.? She reports headache averaging 6/10 on the pain scale and continued nausea.? Vital signs are stable, she is on room air, she is currently afebrile.?
--- NOTE | 2023-07-08 09:35 | PM.IMPN ---
Progress Note: A&P Assessment and Plan (1) Sepsis: Qualifiers: Sepsis acute organ dysfunction status: without acute organ dysfunction Sepsis type: sepsis due to unspecified organism Qualified Code(s): A41.9 - Sepsis, unspecified organism Code(s): A41.9 - Sepsis, unspecified organism Status: Acute Assessment and Plan: 07/05/23: Patient meeting sepsis criteria with temp 103.1, tachycardia 120's, and known UTI Patient received 3L NS and started on IVF @ 100ml/hr Blood and urine cultures were obtained and are pending Patient was started on Rocephin 1gm which we increased to 2gm today due to history of pyelonephritis and sepsis presentation 07/07/23: Blood cultures showing no growth Urine culture showing E. coli in the urine on preliminary, awaiting sensitivities and final read Continue with Rocephin 2 gm for now. Still having high temp reads with T-max of 102.5 last night 07/08/23: (2) UTI (urinary tract infection): Code(s): N39.0 - Urinary tract infection, site not specified Status: Acute Assessment and Plan: 07/05/23: UA 2+ protein, trace ketones, 2+ blood, + Nitrates, 3+ leukocyte, 3-5 urine RBC's, >100 urine WBCs, few urine squamous epithelial cells, 4+ bacteria. Urine sent for culture and is pending Started on Rocephin 1gm, will increase to 2gm today considering her sepsis picture and history of UTI's Reporting nausea/vomiting over night, Zofran ordered q4h as needed, will give a one time dose of Compazine today 07/07/23: Urine culture showing E.coli on preliminary read, awaiting final read and sensitivities. Continue Rocephin 07/08/23: (3) Pyelonephritis: Code(s): N12 - Tubulo-interstitial nephritis, not specified as acute or chronic Status: Acute Assessment and Plan: 07/05/23: see above CT of abdomen/pelvis negative for any uropathic obstructing stone elevated temp, tachycardia, left flank pain, UA showing UTI. 07/07/23: Denies left flank pain Still having high temp with T max 102.5 last night. 07/08/23: Time Spent With Patient Time with patient: 25 - 35 minutes Subjective Date/time seen: 07/08/23 09:35 Interval history: 07/06/23: This is a 33 year old female with significant past medical history of inguinal hernia and frequent UTI's that presented to the hospital with chief complaint of left flank pain with associated nausea that started on 07/04/23. Patient is concerned that she may have another UTI. Work up in the hospital included a chest x-ray which was negative for any acute cardiopulmonary disease. She also had a CT of the abdomen/pelvis which did not any acute abdominal pelvic process or uropathy obstruction. There was a 2mm non-obstructing stone in right upper pole. EKG showing sinus tachycardia, rate 117 Labs revealed a WBC 10.0, absolute neutrophils 8.5, Lactic acid 1.1, bilirubin 2.3, Liver enzymes were normal, BG 82-131, Lipase 49. UA revealed 2+ protein, trace ketones, 2+ blood, + Nitrates, 3+ leukocytes, 3-5 urine RBC's, >100 urine WBC's, few urine squamous epithelial cells, 4+ bacteria. Respiratory panel was negative. Patient was given 3L NS, blood and urine cultures were obtained, and she was started on Rocephin 1gm IV in the ER. Patient meeting sepsis criteria with T-max 103.1, tachycardia 120's, and known source of UTI. On examination today patient alert and oriented x4, lying in the bed.? She reports headache averaging 6/10 on the pain scale and continued nausea.? Vital signs are stable, she is on room air, she is currently afebrile.? She endorses nausea and vomiting.? She denies any fever, chills, diarrhea, abdominal pain.? Labs today revealed WBC 10.9, Hgb 10.3, Hct 33.1, absolute neuts 9.3, Na+ 135, K+ 3.5, BUN 10, Creatinine 0.60, BG ranging 131-140, Lactic acid 0.7, Ca+ 7.6, total bili 1.5, liver enzymes normal. Blood and urine cultures pending. Patient was increased to 2gm Rocephin given her history of UTI's/ py
--- NOTE | 2023-07-08 15:29 | PM.DS ---
DS: Admitting Diagnosis Discharge Date 07/08/23 Admitting Diagnosis Sepsis UTI pyelonephritis bilirubinemia DS: Discharge Diagnosis Discharge Diagnosis (1) Sepsis: Qualifiers: Sepsis acute organ dysfunction status: without acute organ dysfunction Sepsis type: sepsis due to unspecified organism Qualified Code(s): A41.9 - Sepsis, unspecified organism Code(s): A41.9 - Sepsis, unspecified organism Status: Acute (2) UTI (urinary tract infection): Code(s): N39.0 - Urinary tract infection, site not specified Status: Acute (3) Pyelonephritis: Code(s): N12 - Tubulo-interstitial nephritis, not specified as acute or chronic Status: Acute DS: Summary Hospital Course Reason for hospitalization: Sepsis related to UTI Hospital Course: This is a 33 year old female with significant past medical history of inguinal hernia and frequent UTI's that presented to the hospital with chief complaint of left flank pain with associated nausea that started on 07/04/23. Patient is concerned that she may have another UTI. Work up in the hospital included a chest x-ray which was negative for any acute cardiopulmonary disease. She also had a CT of the abdomen/pelvis which did not any acute abdominal pelvic process or uropathy obstruction. There was a 2mm non-obstructing stone in right upper pole. EKG showing sinus tachycardia, rate 117 Labs revealed a WBC 10.0, absolute neutrophils 8.5, Lactic acid 1.1, bilirubin 2.3, Liver enzymes were normal, BG 82-131, Lipase 49. UA revealed 2+ protein, trace ketones, 2+ blood, + Nitrates, 3+ leukocytes, 3-5 urine RBC's, >100 urine WBC's, few urine squamous epithelial cells, 4+ bacteria. Respiratory panel was negative. Patient was given 3L NS, blood and urine cultures were obtained, and she was started on Rocephin 1gm IV in the ER.??Patient meeting sepsis criteria with T-max 103.1, tachycardia 120's, and known source of UTI. Urine culture showing E.coli in the urine on final read. On examination today patient is alert oriented x4, lying in the bed. She denies any nausea, vomiting, diarrhea, abdominal pain, fever, chills, shortness of breath, chest pain. She does report that she has had a headache. Labs today reveal WBC 5.3, Hgb 9.8, Hct 32.1, Na+ 140, K+ 3.5, Chloride 108, bicarb 23, BUN 8, Creatinine 0.5, Bg ranging 99-116, Ca+ 8.0. VSS, she is on room air, she is currently afebrile however Tmax overnight was 99.7. Patient stable for discharge. She will be given a script for cefdinir and will need to follow up with her primary care physician in 1 week. Final diagnosis: Sepsis with known source of urinary tract infection Status at Discharge Cognitive/behavioral status at discharge: Alert oriented x4 Functional status at discharge: independent ambulation Overall status at discharge: patient is progressing back to baseline Time Spent with Patient Time attestation: Total time spent providing and/or coordinating discharge services: Time spent: Greater than 30 minutes Exam Narrative: General: In no acute distress, well nourished Head: atraumatic, no encephalopathy Eyes: EOMI, PERRLA, sclera clear ENT: moist mucous membranes, nasal passages clear Neck: supple, no JVD, no adenopathy, trachea midline Cardiac: Normal S1 and S2. No murmur, gallops or friction rubs, peripheral pulses intact. Respiratory: Lungs clear to auscultation, no adventitious lung sounds Gastrointestinal: soft, non-distended, non-tender, normoactive bowel sounds. : voiding without difficulty. Extremities: moves all extremities well, no edema, good ROM, strength 5/5 Skin: clean, dry, intact. No wounds or lesions. Neuro: Alert and oriented x4, cranial nerves intact, no neuro deficits. Psych: normal mood, normal affect, interactive DS: Data Data Completed and Pending Completed studies during hospitalization: Chest x-ray Abdominal pelvis CT Chest x-ray Abdomen ultrasound Pending studies at discharge:
== END 2023-07-08 16:52 | disposition home or self-care (01) ==
LOC: ANHED 07-06 00:36 → ANH2MED 07-06 12:57
PROVIDERS: Nurse Practitioner Acute Care; Student in an Organized Health Care Education/Training Program; Admitting Provider Internal Medicine; Emergency Provider Physician Assistant; Visit Provider Student in an Organized Health Care Education/Training Program
DX: A41.9 Sepsis, unspecified organism (principal); N39.0 Urinary tract infection, site not specified; B96.20 Unspecified Escherichia coli [E. coli] as the cause of diseases classified elsewhere; N12 Tubulo-interstitial nephritis, not specified as acute or chronic; E80.6 Other disorders of bilirubin metabolism; R00.0 Tachycardia, unspecified; Z20.822 Contact with and (suspected) exposure to COVID-19; Z87.440 Personal history of urinary (tract) infections; Z79.899 Other long term (current) drug therapy
CPT/HCPCS: 36415; 71045; 74176; 76705; 80053; 81001; 81025; 83605; 83690; 85025; 87040; 87077; 87086; 87186; 87636; 93005; 96361; 96365; 96372; 96374; 96375; 96376; 99285; A9270; G0378; G0379; J0696; J0780; J1650; J1885; J2270; J2405; J7030